=== PATIENT | male | born 1965 | race Hispanic/Latino ===

== ENCOUNTER → 2017-08-03 | Day surgery (SDC) | payer OTHER ==
[~2017-08-03] MED LIST: BELLADONNA/OPIUM 60 MG SUPP PR ONE; CEFTRIAXONE SOD 1 GM/NS 50 ML 50 ML IV ONE; CHLORHEXIDINE GLUCONATE 4% 120 ML BTL ONE; DEXAMETHASONE SOD PHOS INJ 4 MG/ML VIAL ONE; FENTANYL CITRATE/PF 100MCG/2 ML INJ ONE; FINASTERIDE5 MG PO; GENTAMICIN 80MG/NS 100 ML 200 ML IV ONE; IOPAMIDOL 610MG/1ML 300 MG/ML VIAL IV ONE; LIDOCAINE HCL 2% LOCAL INJ 5 ML SDV VIAL INJ ONE; MIDAZOLAM HCL 2 MG/2 ML VIAL ONE; ONDANSETRON HCL INJ 2 MG/ML VIAL ONE; PROPOFOL IV EMULSION 10 MG/ML 20 ML VIAL ONE; SEVOFLURANE INHAL SOLN 250 ML PEN BTL ONE; TAMSULOSIN HCL0.4 MG PO
--- NOTE | 2017-09-14 05:37 | Operative Report ---
DATE OF PROCEDURE: August 03, 2017 PREOPERATIVE DIAGNOSES 1. BPH. 2. Urinary tract infection. POSTOPERATIVE DIAGNOSES 1. BPH. 2. Urinary tract infection. 3. Urethral stricture disease. OPERATIONS PERFORMED 1. Cystourethroscopy with calibration and dilation of bulbar urethral stricture (separate procedure performed for the diagnosis of the stricture). 2. Cystourethroscopy with bilateral ureteral catheterization and retrograde ureteropyelography (separate procedure performed for the urinary tract infections). 3. Interpretation of retrograde ureteropyelography. 4. Supervision of fluoroscopy. No radiologist present. 5. Cystourethroscopy with implantation of 4 separate UroLift implants. ANESTHESIA: General. COMPLICATIONS: None. CLINICAL SUMMARY: Regino Alva is a 51-year-old man with the above preoperative diagnoses. He has a history of urinary retention. Patient's prostate volume is 62 mL by ultrasonography. He is brought for the above procedures. He is aware of the risks of bleeding, infection, injury to adjacent structures, need for additional procedures and elected to proceed. OPERATIVE PROCEDURE IN DETAIL: Informed consent was verified. Regino Alva was properly identified, taken to the operating room. Placed on the cystoscopy table in supine position. Anesthesia was uneventfully begun. The patient was then carefully and gently repositioned in the dorsal lithotomy position with all pressure points well padded. His genitalia were prepared and draped in the usual sterile fashion. A 22.5-English cystoscope sheath with the visual obturator in place was atraumatically inserted in the patient's urethra. It was guided down the unremarkable distal urethra to the bulbar region where there were 2 urethral strictures. These strictures were calibrated and dilated to the 22.5-English cystourethroscope sheath with the visual obturator in place. We then passed to normal sphincteric region and went through the prostatic bed which was significant for bilobar prostatic hypertrophy with kissing lateral lobes and visual obstruction. Panendoscopy of the urinary bladder revealed grade 1 to 2 trabeculations, but no tumors, no stones and no diverticula. Normally positioned and configured ureteral orifices were identified. An 8-English catheter was used to cannulate each ureter and retrograde ureteropyelograms were performed. Interpretation of retrograde ureteropyelography: Contrast was instilled in retrograde fashion bilaterally. There were no tumors, no stones and no diverticula. Unobstructed drainage was observed bilaterally fluoroscopically. The cystoscope sheath was removed. We then inserted under direct vision, a 20-English sheath and then we placed 4 UroLift implants. They were placed anteriorly on either side. Two were placed 1.5 cm distal to the bladder neck and 2 were placed at the level of the verumontanum. This resulted in an open anterior channel. The obturator was reinserted. Panendoscopy was again performed. The bladder was drained. We then visually examining the prostate bed and urethra as we exited with the visual obturator in place and appropriate result was obtained. A belladonna and opium suppository was placed revealing prostate that is 40 g in size, smooth, non-fluctuant without any nodules. The patient was uneventfully reversed from anesthesia and taken to recovery room in stable condition. There were no complications to the procedure. He tolerated the procedure well. Explicit postoperative instructions were given. We will follow the patient up in the office at which point in time, we will perform uroflowmetry and bladder ultrasonography. Ongoing urological followup is must. Job#: [id number]
== END | disposition home or self-care (01) ==
LOC: OR 05:21
PROVIDERS: ATTEND Urology
DX: N40.0 Benign prostatic hyperplasia without lower urinary tract symptoms (principal); N39.0 Urinary tract infection, site not specified; N35.9 Urethral stricture, unspecified; N32.89 Other specified disorders of bladder; R35.1 Nocturia; N39.41 Urge incontinence; N32.81 Overactive bladder; E66.9 Obesity, unspecified; F17.200 Nicotine dependence, unspecified, uncomplicated; Z01.810 Encounter for preprocedural cardiovascular examination; Z68.33 Body mass index [BMI] 33.0-33.9, adult; Z84.1 Family history of disorders of kidney and ureter
CPT/HCPCS: 52005; C9740; 74420; 93005; J0696; J1100; J1580; J2001; J2250; J2405

== ENCOUNTER → 2018-09-16 | Day surgery (SDC) | payer OTHER ==
[2018-09-15 09:11] LABS: BASOPHILS % 0.4 % (0.0-1.0); EOSINOPHILS # (AUTO) 0.1 (0.0-0.4); EOSINOPHILS % 1.6 % (0.0-6.0); HEMATOCRIT 40.5 % (38.2-49.6); HEMOGLOBIN 13.8 g/dL (14.0-18.0); LYMPHOCYTES # (AUTO) 2.8 (1.0-3.2); LYMPHOCYTES % 33.9 % (18.0-39.1); MEAN CORPUSCULAR HEMOGLOBIN 30.5 pg (28-32); MEAN CORPUSCULAR HGB CONC 34.1 g/dL (31-35); MEAN CORPUSCULAR VOLUME 89.4 fL (81-99); MONOCYTES # (AUTO) 0.6 (0.2-0.8); MONOCYTES % 6.9 % (4.4-11.3); NEUTROPHILS # (AUTO) 4.7 (2.1-6.9); NEUTROPHILS % 56.7 % (38.7-80.0); PLATELET COUNT 267 x10e3/uL (140-360); RED BLOOD COUNT 4.53 x10e6/uL (4.3-5.7); RED CELL DISTRIBUTION WIDTH 13.4 % (11.7-14.4)
[2018-09-15 09:34] LABS: ANION GAP 12.5 mmol/L (8-16); BLOOD UREA NITROGEN 10 mg/dL (7-26); BUN/CREATININE RATIO 13 (6-25); CALCIUM 8.5 mg/dL (8.4-10.2); CARBON DIOXIDE 23 mmol/L (22-29); CHLORIDE 106 mmol/L (98-107); CREATININE, SERUM 0.77 mg/dL (0.72-1.25); EST GLOMERULAR FILTRATION RATE > 60 ML/MIN (60-); GLUCOSE 103 mg/dL (74-118); POTASSIUM 3.5 mmol/L (3.5-5.1); SODIUM 138 mmol/L (136-145)
[~2018-09-16] MED LIST changes: +BELLADONNA/OPIUM 30 MG SUPP RC ONE; -BELLADONNA/OPIUM 60 MG SUPP PR ONE; -CHLORHEXIDINE GLUCONATE 4% 120 ML BTL ONE; +DESFLURANE 240 ML BTL INH ONE; +IBUPROFEN; +OXYBUTYNIN CHLOR5 MG PO; -SEVOFLURANE INHAL SOLN 250 ML PEN BTL ONE
[2018-09-16 11:10] VITALS: BP 132/86
--- NOTE | 2018-09-27 01:20 | Operative Report ---
DATE OF PROCEDURE: September 16, 2018 PREOPERATIVE DIAGNOSES 1. Obstructive BPH. 2. Urinary tract infections. POSTOPERATIVE DIAGNOSES 1. Obstructive BPH. 2. Urinary tract infections. 3. Left proximal ureteral diverticulum. 4. Urethral stricture. OPERATIONS PERFORMED 1. Cystourethroscopy with bilateral ureteral catheterization and retrograde ureteropyelography (separate procedure performed for the urinary tract infections). 2. Interpretation of retrograde ureteropyelography. 3. Supervision of fluoroscopy. No radiologist present. 4. Cystourethroscopy with transurethral resection of the prostate utilizing the plasma button electrode. 5. Cystourethroscopy with dilation of urethral stricture. (Separate procedure for the stricture.) Note these are all staged procedures and we will plan to perform uroflowmetry in a staged fashion within the next month or so. ANESTHESIA: General. COMPLICATIONS: None. CLINICAL SUMMARY: Regino Alva is a 52-year-old man who has significant amount of urinary symptoms. He has hyperreflexic bladder with urge incontinence. He has history of urinary tract infections. He does have a history of having urinary retention in the past. He underwent prior UroLift implantations. A total of 4 implants were placed with improvement of the patient's case and ability to urinate where before he was in retention. However, the patient's voiding is not ideal and he elected to proceed with procedure as recommended today. He is aware of the risks of bleeding, infection, injury to adjacent structures, incontinence, impotence, retrograde ejaculation, need for additional procedures, and elected to proceed. OPERATIVE PROCEDURE IN DETAIL: Informed consent was verified. Regino Alva was properly identified, taken to the operating room, and placed on the cystoscopy table in supine position. Anesthesia was uneventfully begun. The patient was then carefully and gently re-positioned in the dorsal lithotomy position with all pressure points well padded. His genitalia were prepared and draped in the usual sterile fashion. The 22.5-Singaporean cystoscope sheath with the visual obturator in place was atraumatically inserted into the patient's urethra. It was guided down the unremarkable distal urethra to the bulbar region. In the bulbar region, we identified some strictures. These are probably not clinically significant strictures but nevertheless needed dilation. We dilated across these strictures with the visual obturator, thus calibrating them to 22.5-Singaporean. The sphincteric region was normal. The prostate bed was significant for bilobar prostatic hypertrophy with visual obstruction and a long prostate bed. There was a continuous anterior channel as a result of the UroLift implant, but this was not ideal as evidenced by the patient's obstructed voiding. We then entered the patient's bladder where panendoscopy revealed trabeculations, but no tumors, no stones, and no diverticulum. No suspicious mucosal lesions were identified. An 8-Singaporean catheter was used to cannulate each ureter and retrograde ureteropyelograms were performed. Interpretation of retrograde ureteropyelography. Contrast was instilled in a retrograde fashion bilaterally. There were no tumors, no stones, no suspicious lesions. In the junction between the proximal and middle third of the left ureter, there was a ureteral diverticulum. This was not obstructing and we could see contrast draining from this diverticulum. J-hooking was noted. We could also see an indentation into the bladder of the prostate consistent with its prominence. The cystoscope was withdrawn. We then utilized Linda male sounds to progressively dilate the patient's urethra to 30-Singaporean in size. This was done very gently. Following this, the resectoscope sheath was atraumatically inserted in the patient's urethra and the bladder was drained. Plasma button electrode was then utilized to vaporize first the region of the bladder neck. Then we vaporized from the bladder neck to but never past the verumontanum and down to the surgical capsule throughout. UroLift implants were dislodged and extracted. We vaporized the suture down to the surgical capsule. The UroLift implants were buried and submucosal prior to vaporization of the prostate. Pinpoint electrocautery was utilized to achieve hemostasis. The resectoscope was withdrawn. A Rasheed catheter was placed. He was placed on continuous irrigation with completely clear efflux. A belladonna and opium suppository was placed revealing a 40-g prostate that was smooth, non-fluctuant without any nodules. The patient was then uneventfully reversed from anesthesia and taken to recovery room in stable condition. There were no complications to the procedure. Patient tolerated the procedure well.. Estimated blood loss was minimal. We will plan on having the patient's catheter removed in several days. Following this, we will follow up in approximately 1 month for uroflowmetry and bladder ultrasonography. Job[facility] [id number] [facility]
== END | disposition home or self-care (01) ==
LOC: OR 06:17
PROVIDERS: ATTEND Urology
DX: N40.1 Benign prostatic hyperplasia with lower urinary tract symptoms (principal); N13.8 Other obstructive and reflux uropathy; R33.9 Retention of urine, unspecified; N39.41 Urge incontinence; N39.0 Urinary tract infection, site not specified; N28.89 Other specified disorders of kidney and ureter; N35.912 Unspecified bulbous urethral stricture, male; N32.89 Other specified disorders of bladder; M19.90 Unspecified osteoarthritis, unspecified site; Z72.0 Tobacco use; Z01.810 Encounter for preprocedural cardiovascular examination; Z01.812 Encounter for preprocedural laboratory examination
CPT/HCPCS: 36415; 52601; 74420; 80048; 85025; 93005; C1758; J0696; J1100; J1580; J2001; J2250; J2405; J2704; Q9967

== ENCOUNTER 2018-10-22 23:44 | Emergency (ER) | payer OTHER ==
[~2018-10-22 23:44] MED LIST changes: -BELLADONNA/OPIUM 30 MG SUPP RC ONE; -CEFTRIAXONE SOD 1 GM/NS 50 ML 50 ML IV ONE; -DESFLURANE 240 ML BTL INH ONE; -DEXAMETHASONE SOD PHOS INJ 4 MG/ML VIAL ONE; -FENTANYL CITRATE/PF 100MCG/2 ML INJ ONE; -GENTAMICIN 80MG/NS 100 ML 200 ML IV ONE; -IOPAMIDOL 610MG/1ML 300 MG/ML VIAL IV ONE; -LIDOCAINE HCL 2% LOCAL INJ 5 ML SDV VIAL INJ ONE; -MIDAZOLAM HCL 2 MG/2 ML VIAL ONE; -ONDANSETRON HCL INJ 2 MG/ML VIAL ONE; -PROPOFOL IV EMULSION 10 MG/ML 20 ML VIAL ONE
== END 2018-10-23 | disposition left against medical advice (07) ==
LOC: ER 23:44
DX: R50.9 Fever, unspecified (principal)